=== PATIENT | male | born 1970 | race Two or more races ===

== ENCOUNTER 2016-09-25 07:15 | Emergency (ER) | payer OTHER ==
--- NOTE | 2016-10-14 15:43 | ER ---
ADMIT: 09/25/2016 RM/LOC: ER [facility] MR#: [id number] [address] [id number] EMMETT, PAUL Shemar [address] [place] [address] Emergency Room Report SEX: M AGE: 46 : 1970 DATE: 09/25/2016 This 46-year-old, left his contacts in overnight, now comes with complaints of vision changes, blurriness in the right eye, and foreign body sensation or "itchiness." See T sheet for remainder of history and physical. The patient is diagnosed with contact-induced keratitis. I did speak with Dr. Thompson. He was to follow up with her for management plan. Nayan Pope MD/ jocy JOB #: [id number] CC: Nayan Pope MD, Attending Physician Wilfred Thompson MD, Family Physician
== END 2016-09-25 08:05 | disposition home or self-care (01) ==
LOC: ER 07:15
DX: H16.8 Other keratitis (principal); F17.210 Nicotine dependence, cigarettes, uncomplicated; Z90.49 Acquired absence of other specified parts of digestive tract; Z90.89 Acquired absence of other organs; Z86.19 Personal history of other infectious and parasitic diseases; Z88.6 Allergy status to analgesic agent